=== PATIENT | female | born 2000 | race African-American/Black ===

== ENCOUNTER 2024-01-29 08:31 | Outpatient (AMB) | payer BC, SELFPAY ==
--- NOTE | 2024-01-29 08:38 | MHC.OFFVIS ---
Vital Signs 01/29/24 08:43 Height 5 ft 3 in Weight 120 lb BMI 21.3 BP 120/71 Blood Pressure Location Rt brachial Position Sitting Pulse 95 Intake Visit Reasons: thrombosed hemorrhoid Intake Note: Patient referred by Lavinia Johnston [employer] for thrombosed hemorrhoid. First noticed 2d. Patient c/o: constipation. Denies bleeding. Hx of hemorrhoids a few yrs ago. [employer] Required: No Accompanied by: friend [place] Allergies No Known Allergies Allergy (Verified 01/29/24 08:45) Medication List - Last Reconciled 01/29/24 by Miller Machuca MD No Known Home Meds HPI HPI thrombosed hemorrhoid: Details: [age] year old female referred for a thrombosed hemorrhoid. She is a student at the [employer] and apparently had gone there yesterday because of pain from 1 of her hemorrhoids. The school nurse had describes this as a large thrombosed external hemorrhoid. She says she was given lidocaine gel and ibuprofen by the school nurse. She says this has helped a lot although she still has pain when this wears off. She denies any bleeding. She says she seems to remember having a similar episode when she was in middle school but this resolved quickly then. [facility] Medical History (Updated 01/29/24 @ 08:58 by Miller Machuca MD) Thrombosed hemorrhoids Social History Alcohol intake: never Patient Tobacco Use Status: Never used Tobacco Review of Systems Const Denies chills and Denies fever(s) Card Denies chest pain, Denies dyspnea and Denies dyspnea on exertion Resp Denies cough, Denies dyspnea and Denies dyspnea on exertion GI Denies hematochezia and Denies change in bowel habits Denies hematuria Musc Denies back pain and Denies limited range of motion Neuro Denies focal weakness and Denies convulsions Psych Denies depression and Denies mood swings Physical Exam Const General: comfortable and no acute distress Orientation/consciousness: patient oriented x3 Neck Neck: Yes no lymphadenopathy Resp Auscultation: clear to auscultation bilaterally Cardio Rhythm: regular rhythm GI Other: Rectal exam shows large thrombosed hemorrhoid with edema, about 1.5 to 2 cm,, mostly external hemorrhoid, tender Palpation (GI): Soft to palpation, nontender and no guarding Neuro General: patient oriented x3 Assessment & Plan Assessment & Plan (1) Thrombosed hemorrhoids: Code(s): K64.5 - Perianal venous thrombosis Category: Medical Plan: Examination does reveal a thrombosed hemorrhoids mostly external with a little bit of prolapse of internal component This is her 3rd day of the swelling. I therefore offered her the option of proceeding with surgery with hemorrhoidectomy because of the size with the hemorrhoid and accompanying edema. I explained the option of doing hot Sitz baths, symptomatic treatment and he was self resorption of the thrombosis and edema She does have finals next week so she wants to avoid surgery. I explained to her that this should slowly improve with then the next few days. I will prescribe her the lidocaine gel. I advised her to do the hot Sitz baths or warm soaks 4 times a day. She understands and is comfortable with the plan. Coding Level of Care Code New Pt Level 3 (59446) Diagnoses Thrombosed hemorrhoids K64.5
[2024-01-29 08:43] VITALS: BP 120/71; PULSE 95; BMI 21.3
== END 2024-01-29 08:56 | disposition home or self-care (01) ==
PROVIDERS: PCP Registered Nurse; Visit Provider Surgery
DX: K64.5 Perianal venous thrombosis (principal)
CPT/HCPCS: 99203

== ENCOUNTER → 2024-01-29 08:31 | Outpatient (BNVA) | payer BC, SELFPAY | PROVIDERS: PCP Registered Nurse; Visit Provider Surgery ==